=== PATIENT | male | born 1960 | race Caucasian/White ===

== ENCOUNTER 2018-09-04 10:09 | Emergency (ER) | payer BC ==
[2018-09-04] MEDS: KETOROLAC 30 MG INJ IM (10:41)
== END 2018-09-04 11:59 | disposition home or self-care (01) ==
LOC: FTE 10:09
DX: M25.512 Pain in left shoulder (principal); I10 Essential (primary) hypertension; Z79.82 Long term (current) use of aspirin
CPT/HCPCS: 73030; 73562; 96372; 99284-25

== ENCOUNTER 2019-01-10 12:37 | Emergency (ER) | payer BC ==
[2019-01-10] MEDS: KETOROLAC 60 MG INJ IM (13:21)
== END 2019-01-10 13:36 | disposition home or self-care (01) ==
LOC: FTE 13:36
DX: M77.9 Enthesopathy, unspecified (principal); I10 Essential (primary) hypertension; Z79.82 Long term (current) use of aspirin
CPT/HCPCS: 96372; 99284-25